=== PATIENT | female | born 1935 | race Caucasian/White ===

== ENCOUNTER 2016-10-22 11:32 | Emergency (ER) | payer MEDICARE, BC ==
[2016-10-22] MEDS ORDERED: Adacel (T-DAP) 0.5 ML VIAL ONE (11:54)
== END 2016-10-22 12:10 | disposition home or self-care (01) ==
LOC: MADERS 11:32
DX: S80.02XA Contusion of left knee, initial encounter (principal); S80.01XA Contusion of right knee, initial encounter; S90.411A Abrasion, right great toe, initial encounter; K57.92 Diverticulitis of intestine, part unspecified, without perforation or abscess without bleeding; E03.9 Hypothyroidism, unspecified; I10 Essential (primary) hypertension; G47.30 Sleep apnea, unspecified; F41.9 Anxiety disorder, unspecified; F32.9 Major depressive disorder, single episode, unspecified; Z86.73 Personal history of transient ischemic attack (TIA), and cerebral infarction without residual deficits; Z23 Encounter for immunization; W18.30XA Fall on same level, unspecified, initial encounter
CPT/HCPCS: 90471; 90715